=== PATIENT | female | born 1945 | race Caucasian/White ===

== ENCOUNTER 2019-04-08 16:31 | Emergency (ER) | payer MEDICARE ==
[2019-04-08 16:52] VITALS: BP 178/72
--- NOTE | 2019-04-08 16:57 | UC ---
Head Injury HPI - HPI Summary HPI Summary: 73 yo female presents with fall. 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 She landed on her left knee and hand and hit the left side of her forehead against the gravel. No LOC. She was able to get to her feet. Went home and ate dinner and began to have a mild headache - prompting her visit to . She has not taken anything OTC for her discomfort. She does take a daily baby ASA. Unsure date of last tetanus. Denies dizziness, vision changes, SOB, chest pain, n/v, weakness, numbness, or tingling. - History Of Current Complaint Chief Complaint: UCTrauma Stated Complaint: HEAD INJURY Time Seen by Provider: 04/08/19 16:56 Hx Obtained From: Patient Onset/Duration: Sudden Onset Severity Currently: Mild Severity Initially: Moderate Pain Intensity: 5 Pain Scale Used: 0-10 Numeric - Allergies/Home Medications Allergies/Adverse Reactions: Allergies Allergy/AdvReac Type Severity Reaction Status Date / Time No Known Allergies Allergy Verified 04/08/19 16:53 Home Medications: Home Medications Aspirin 81 mg CHEW TAB* [Aspirin Low Dose TAB*] 81 mg PO DAILY 04/08/19 [ History Confirmed 04/08/19] Mv-Min/Vit C/Glut/Lysine/Hb124 [Immune Support] 1 chw PO DAILY 04/08/19 [ History Confirmed 04/08/19] Mv-Mn/Folic Acid/Calcium/Vit K [Women's 50 Plus Daily Formula] 1 tab PO DAILY [History Confirmed 04/08/19] PMH/Surg Hx/FS Hx/Imm Hx - Additional Past Medical History Additional PMH: None - Surgical History Surgical History: Yes Surgery Procedure, Year, and Place: Bilateral hip replacement. tubal ligation - Family History Known Family History: Positive: Non-Contributory - Social History Occupation: Employed Full-time Lives: With Family Alcohol Use: None Substance Use Type: None Smoking Status (MU): Former Smoker Type: Cigarettes When Did the Patient Quit Smoking/Using Tobacco: 40 years ago - Immunization History Most Recent Tetanus Shot: >10 years ago Review of Systems All Other Systems Reviewed And Are Negative: Yes Constitutional: Positive: Negative Skin: Positive: Other - Abrasions Eyes: Positive: Negative ENT: Positive: Negative Respiratory: Positive: Negative Cardiovascular: Positive: Negative Gastrointestinal: Positive: Negative Genitourinary: Positive: Negative Motor: Positive: Negative Neurovascular: Positive: Negative Musculoskeletal: Positive: Negative Neurological: Positive: Headache Psychological: Positive: Negative Physical Exam - Summary Physical Exam Summary: GENERAL: NAD. WDWN. No pain distress. SKIN: LEFT FOREHEAD: superficial abrasion with slight hematoma and ecchymosis. LEFT HAND: palmar aspect with superficial abrasion. RIGHT great toe with superficial abrasion. HEENT: Head: See skin Eyes: PERRLA. EOM intact. Conjunctiva clear without inflammation or discharge. Ears: Hearing grossly normal. TMs intact, no bulging, erythema, or edema. No hemotympanum Nose: Nasal mucosa pink and moist. NTTP maxillary and frontal sinus. Throat: Posterior oropharynx without exudates, erythema, or tonsillar enlargement. Uvula midline. NECK: Supple. Nontender. FROM CHEST: CTAB. No r/r/w. No accessory muscle use. Breathing comfortably and in no distress. CV: RRR. Without m/r/g. Pulses intact. Brisk cap refill. MSK: FROM in B/L UEs and LEs with symmetric strength. NEURO: A&Ox3. 3 word recall, remote, recent memory, ability to follow 2-step directions, and attention intact. CN: II: Peripheral malone intact. Vision normal. III, IV, : EOMI. No nystagmus. PERRLA. V: Sensations intact and symmetric. Opens mouth and clenches teeth. VII: No facial asymmetry. Forehead wrinkles. Grins, shuts eyes, frowns, puffs cheeks. VIII: Hearing intact to finger rub. IX, X: Swallows and coughs. Uvula midline. XI: Shrugs shoulders. Turns head against resistance. XII: No tongue deviation [id number] are intact. Gait with normal base. Romberg: maintains balance, no pronator drift. Normal speech. No facial drooping. PSYCH: Age appropriate behavior. Triage Information Reviewed: Yes Vital Signs: Initial Vital Signs Temp 98.6 F 04/08/19 16:47 Pulse 95 04/08/19 16:47 Resp 16 04/08/19 16:47 BP 178/72 04/08/19 16:47 Pulse Ox 97 04/08/19 16:47 Vital Signs Reviewed: Yes Head Injury Course/Dx - Course Course Of Treatment: CT brain: IMPRESSION: #. LEFT frontal temporal scalp hematoma measuring up to 0.7 cm in thickness. Negative for calvarial or skull base fracture. #. No CT evidence for traumatic brain injury. Wounds were cleansed with NS and bandaged with telfa and band-aids. tdap updated today. Advised to rest and apply ice to her head to decrease pain and swelling. If she develops worsening headache, dizziness, SOB, chest pain, vomiting, vision changes - to go to the ER immediately. - Differential Dx/Diagnosis Provider Diagnosis: Head injury, Abrasion Discharge - Sign-Out/Discharge Documenting (check all that apply): Patient Departure All imaging exams completed and their final reports reviewed: Yes - Discharge Plan Condition: Stable Disposition: HOME Patient Education Materials: Head Injury (ED), Abrasion (ED) Referrals: No Primary Care Phys,NOPCP [Primary Care Provider] - Additional Instructions: If you develop a fever, shortness of breath, dizziness, vision changes, vomiting , chest pain, new or worsening symptoms - please call your PCP or go to the ED immediately. Your blood pressure was high at todays visit. Please see your primary provider within 4 weeks for recheck and re-evaluation. Apply ice to your areas of injury to reduce pain and swelling. Your tetanus shot was updated today. May take tylenol as directed for your discomfort. - Billing Disposition and Condition Condition: STABLE Disposition: Home
[2019-04-08] MEDS ORDERED: Tetan/Diph/Pertus SYR(Tdap)* 0.5 ML SYR(BOOSTRIX) use SYR contains LATEX IM ONE (17:23)
== END 2019-04-08 17:38 | disposition home or self-care (01) ==
LOC: UCEAST 16:31
DX: S09.90XA Unspecified injury of head, initial encounter (principal); S80.212A Abrasion, left knee, initial encounter; W18.00XA Striking against unspecified object with subsequent fall, initial encounter; Y92.481 Parking lot as the place of occurrence of the external cause; Z79.82 Long term (current) use of aspirin; Z87.891 Personal history of nicotine dependence
CPT/HCPCS: 70450; 90471; 90715; 99202; G0463